=== PATIENT | male | born 1975 | race Caucasian/White ===

== ENCOUNTER 2023-03-31 10:14 | Emergency (ER) | payer OTHER ==
[~2023-03-31] VITALS: Ht 180.3 cm; Wt 94.8 kg
[~2023-03-31 10:14] MED LIST: ERYEYE RIGHT EYE
[2023-03-31 10:20] VITALS: BP_SYST 142; PULSE 78; RESP 17; TEMP 98.7; O2SAT 98
[2023-03-31 12:52] LABS: INFLUENZA TYPE A Negative (NEGATIVE); INFLUENZA TYPE B NEGATIVE (NEGATIVE)
[2023-03-31 12:53] LABS: COVID19 ANTIGEN SOFIA FIA NEGATIVE (NEGATIVE)
[2023-03-31] MEDS ORDERED: ZIT250 PO (13:30)
[2023-03-31] MEDS ORDERED: ALBMDI INH (13:31)
== END 2023-03-31 13:38 | disposition home or self-care (01) ==
LOC: SED 10:14
DX: J40 Bronchitis, not specified as acute or chronic (principal); J02.9 Acute pharyngitis, unspecified; R05.9 Cough, unspecified; R09.81 Nasal congestion; Z79.899 Other long term (current) drug therapy; Z20.822 Contact with and (suspected) exposure to COVID-19
CPT/HCPCS: 36415; 71045; 99284